=== PATIENT | female | born 1980 | race Caucasian/White ===

== ENCOUNTER 2018-08-28 16:07 | Inpatient (IN) | payer OTHER ==
[~2018-08-28] VITALS: Ht 175.3 cm; Wt 71.2 kg
[2018-08-30] MEDS ORDERED: ORTHO-CYCLEN 21 EACH PO (08:54)
[2018-08-30] MEDS ORDERED: PROFERRIN-FORT1 EACH PO (08:55)
== END 2018-08-30 15:47 | disposition home or self-care, planned readmission (81) | DRG 760 ==
LOC: ER 16:07 → OB/GYN 19:00
PROC: 30233N1 Transfusion of Nonautologous Red Blood Cells into Peripheral Vein, Percutaneous Approach (ICD-10-PCS; principal; 2018-08-28)
PROC: BU4CZZZ Ultrasonography of Uterus and Ovaries (ICD-10-PCS; 2018-08-29)
DX: N92.0 Excessive and frequent menstruation with regular cycle (principal); D62 Acute posthemorrhagic anemia; K92.2 Gastrointestinal hemorrhage, unspecified; N83.292 Other ovarian cyst, left side; N83.291 Other ovarian cyst, right side

== ENCOUNTER 2022-03-08 14:05 | Outpatient (CLI) | payer OTHER ==
[~2022-03-08 14:05] MED LIST: ORTHO-CYCLEN 21 EACH PO; PROFERRIN-FORT1 EACH PO
== END 2022-03-08 14:28 | disposition home or self-care (01) ==
LOC: LAB 14:05
PROVIDERS: ATTEND Internal Medicine Hematology & Oncology
DX: D50.8 Other iron deficiency anemias (principal); R79.9 Abnormal finding of blood chemistry, unspecified; I10 Essential (primary) hypertension; R74.02 Elevation of levels of lactic acid dehydrogenase [LDH]; K76.89 Other specified diseases of liver; D51.0 Vitamin B12 deficiency anemia due to intrinsic factor deficiency; E06.3 Autoimmune thyroiditis; D68.8 Other specified coagulation defects; C56.9 Malignant neoplasm of unspecified ovary; R97.8 Other abnormal tumor markers; R97.1 Elevated cancer antigen 125 [CA 125]; Z80.3 Family history of malignant neoplasm of breast; D72.818 Other decreased white blood cell count; D51.3 Other dietary vitamin B12 deficiency anemia; D51.1 Vitamin B12 deficiency anemia due to selective vitamin B12 malabsorption with proteinuria; D69.1 Qualitative platelet defects

== ENCOUNTER → 2022-12-20 09:30 | Outpatient (CLI) | payer OTHER | END | disposition home or self-care (01) | LOC: LAB 09:30 | PROVIDERS: ATTEND Internal Medicine Hematology & Oncology | DX: D72.818 Other decreased white blood cell count (principal); D51.3 Other dietary vitamin B12 deficiency anemia; I10 Essential (primary) hypertension ==

== ENCOUNTER → 2022-12-20 | Outpatient (CLI) | payer OTHER | END | disposition home or self-care (01) | LOC: SONOGRAMA 10:02 | PROVIDERS: ATTEND Internal Medicine Hematology & Oncology | DX: D72.818 Other decreased white blood cell count (principal); D51.3 Other dietary vitamin B12 deficiency anemia; I10 Essential (primary) hypertension; Z80.3 Family history of malignant neoplasm of breast; Z87.42 Personal history of other diseases of the female genital tract ==

== ENCOUNTER → 2023-06-22 11:02 | Outpatient (CLI) | payer OTHER | END | disposition home or self-care (01) | LOC: LAB 11:02 | PROVIDERS: ATTEND Internal Medicine Hematology & Oncology | DX: D50.8 Other iron deficiency anemias (principal); R79.9 Abnormal finding of blood chemistry, unspecified; I10 Essential (primary) hypertension; R74.02 Elevation of levels of lactic acid dehydrogenase [LDH]; K76.89 Other specified diseases of liver; E55.9 Vitamin D deficiency, unspecified; C56.9 Malignant neoplasm of unspecified ovary; R97.8 Other abnormal tumor markers; R97.1 Elevated cancer antigen 125 [CA 125]; R97.0 Elevated carcinoembryonic antigen [CEA]; Z80.3 Family history of malignant neoplasm of breast; D72.818 Other decreased white blood cell count; D51.3 Other dietary vitamin B12 deficiency anemia ==

== ENCOUNTER 2023-08-28 12:04 | Outpatient (CLI) | payer OTHER ==
[2023-08-28 13:53] LABS: PH,URINE 5.5 (5.0-8.0); URINE APPEARANCE Clear; URINE BILIRRUBIN Negative (NEGATIVE); URINE BLOOD Negative; URINE COLOR Yellow; URINE GLUCOSE Negative (NEGATIVE); URINE LEUKOCYTE Negative; URINE NITRATE Negative; URINE PROTEIN Trace (NEGATIVE); URINE UROBILINOGEN 0.2 E.U./dl
[2023-08-28 13:57] LABS: URINE BACTERIA 279.6 uL (0.0-1933); URINE EPITHELIAL CELLS 12.5 uL (0.0-38.8); URINE RBC 4.5 uL (0.0-20.8); URINE WBC 12.2 uL (0.0-23.2)
[2023-08-28 13:57] LABS: HEMATOCRIT 35.4 % (36.0-45.00); MEAN CELL VOLUME 88.3 fL (80.00-100.00); MEAN CORPUSCULAR HEMOGLOBIN 29.9 pg (27.00-32.0); MEAN CORPUSCULAR HGB CONC 33.8 g/dl (32.0-36.0); PLATELET COUNT 189 K/uL (150-450); RED BLOOD COUNT 4.01 M/uL (4.00-6.00); RED CELL DISTRIBUTION WIDTH 14.2 % (11.5-14.5)
[2023-08-28 14:53] LABS: ALBUMIN 3.9 gm/dL (3.4-5.0); BILIRUBIN TOTAL 0.41 mg/dL (0.3-1.2); CALCIUM 9.1 mg/dL (8.5-10.1); CHOL HDL RATIO 3.2 (0-5.0); CREATININE SERUM 0.89 mg/dL (0.55-1.02); GFR 70.25; GLOBULINA 5.2 G/DL (2.4-3.5); POTASSIUM 3.58 mEq/L (3.5-5.1); T4 FREE 0.89 NG/ML (0.76-1.46); TOTAL PROTEIN 9.1 gm/dL (6.4-8.2); TSH 3.21 uIU/mL (0.358-3.74)
== END 2023-08-28 12:13 | disposition home or self-care (01) ==
LOC: LAB 12:04
PROVIDERS: ATTEND Internal Medicine Hematology & Oncology
DX: M32.9 Systemic lupus erythematosus, unspecified (principal); M06.9 Rheumatoid arthritis, unspecified; K74.3 Primary biliary cirrhosis; M34.81 Systemic sclerosis with lung involvement; M33.20 Polymyositis, organ involvement unspecified; Z80.3 Family history of malignant neoplasm of breast; D72.818 Other decreased white blood cell count; D51.3 Other dietary vitamin B12 deficiency anemia; R76.0 Raised antibody titer; M15.0 Primary generalized (osteo)arthritis; I10 Essential (primary) hypertension; M35.89 Other specified systemic involvement of connective tissue; D64.9 Anemia, unspecified; E78.9 Disorder of lipoprotein metabolism, unspecified; E03.9 Hypothyroidism, unspecified; R73.01 Impaired fasting glucose

== ENCOUNTER 2023-12-07 09:19 | Outpatient (CLI) | payer OTHER ==
[2023-12-07 10:24] LABS: HEMOGLOBIN 11.2 g/dL (12.0-15.00); MEAN CORPUSCULAR HEMOGLOBIN 29.3 pg (27.00-32.0); PLATELET COUNT 164 K/uL (150-450); RED BLOOD COUNT 3.82 M/uL (4.00-6.00); RED CELL DISTRIBUTION WIDTH 14.3 % (11.5-14.5)
[2023-12-07 10:59] LABS: ALBUMIN 3.6 gm/dL (3.4-5.0); BILIRUBIN TOTAL 0.32 mg/dL (0.3-1.2); CALCIUM 9.2 mg/dL (8.5-10.1); CREATININE SERUM 0.97 mg/dL (0.55-1.02); GFR 63.29; GLOBULINA 4.7 G/DL (2.4-3.5); POTASSIUM 3.81 mEq/L (3.5-5.1); TOTAL PROTEIN 8.3 gm/dL (6.4-8.2)
[2023-12-07 12:59] LABS: MANUAL PLATELET COUNT 234
[2023-12-07 13:01] LABS: PLATELET ESTIMATE NORMAL (NORMAL)
== END 2023-12-07 09:20 | disposition home or self-care (01) ==
LOC: LAB 09:19
PROVIDERS: ATTEND Internal Medicine Hematology & Oncology
DX: D50.8 Other iron deficiency anemias (principal); R79.9 Abnormal finding of blood chemistry, unspecified; I10 Essential (primary) hypertension; R74.02 Elevation of levels of lactic acid dehydrogenase [LDH]; K76.89 Other specified diseases of liver; C56.9 Malignant neoplasm of unspecified ovary; R97.8 Other abnormal tumor markers; R97.1 Elevated cancer antigen 125 [CA 125]; Z80.3 Family history of malignant neoplasm of breast; D72.818 Other decreased white blood cell count; D51.3 Other dietary vitamin B12 deficiency anemia; R76.0 Raised antibody titer; M15.0 Primary generalized (osteo)arthritis

== ENCOUNTER 2023-12-20 07:20 | Outpatient (CLI) | payer OTHER | END 2023-12-20 07:21 | disposition home or self-care (01) | LOC: NUCLEAR 07:20 | PROVIDERS: ATTEND Internal Medicine Hematology & Oncology | DX: M15.0 Primary generalized (osteo)arthritis (principal); D72.818 Other decreased white blood cell count; D51.3 Other dietary vitamin B12 deficiency anemia; R76.0 Raised antibody titer; I10 Essential (primary) hypertension | CPT/HCPCS: 78315; A9503 ==

== ENCOUNTER → 2024-08-15 10:08 | Outpatient (CLI) | payer OTHER ==
[2024-08-15 11:17] LABS: HEMATOCRIT 30.2 % (36.0-45.00); MEAN CELL VOLUME 75.7 fL (80.00-100.00); MEAN CORPUSCULAR HGB CONC 30.9 g/dl (32.0-36.0); PLATELET COUNT 194 K/uL (150-450); RED BLOOD COUNT 3.98 M/uL (4.00-6.00); RED CELL DISTRIBUTION WIDTH 17.8 % (11.5-14.5)
[2024-08-15 11:43] LABS: HEMOGLOBIN 9.3 g/dL (12.0-15.00); MEAN CORPUSCULAR HEMOGLOBIN 23.3 pg (27.00-32.0)
[2024-08-15 12:25] LABS: % SATURACION 4.7 % (15-50); ALBUMIN 3.8 gm/dL (3.4-5.0); BILIRUBIN TOTAL 0.25 mg/dL (0.3-1.2); CREATININE SERUM 0.81 mg/dL (0.55-1.02); GFR 77.92; TOTAL PROTEIN 8.8 gm/dL (6.4-8.2)
[2024-08-15 12:26] LABS: FERRITIN 5.7 NG/ML (8-252)
[2024-08-15 13:18] LABS: FOLIC ACID 16.94 ng/ml (4.78-20); VITAMIN D3 25 HYDROXY 34.01 ng/ml (30-120)
[2024-08-15 13:43] LABS: PLATELET ESTIMATE NORMAL (NORMAL)
== END | disposition home or self-care (01) ==
LOC: LAB 10:08
PROVIDERS: ATTEND Internal Medicine Hematology & Oncology
DX: Z80.3 Family history of malignant neoplasm of breast (principal); D72.818 Other decreased white blood cell count; D51.3 Other dietary vitamin B12 deficiency anemia; R76.0 Raised antibody titer; M15.0 Primary generalized (osteo)arthritis; I10 Essential (primary) hypertension; M06.9 Rheumatoid arthritis, unspecified; M35.00 Sjogren syndrome, unspecified; M05.29 Rheumatoid vasculitis with rheumatoid arthritis of multiple sites; D64.89 Other specified anemias; N39.0 Urinary tract infection, site not specified; M35.81 Multisystem inflammatory syndrome; B17.9 Acute viral hepatitis, unspecified; Z11.4 Encounter for screening for human immunodeficiency virus [HIV]

== ENCOUNTER 2024-10-13 09:50 | Outpatient (CLI) | payer OTHER ==
[2024-10-13 10:22] LABS: HEMATOCRIT 31.7 % (36.0-45.00); HEMOGLOBIN 10.4 g/dL (12.0-15.00); MEAN CELL VOLUME 80.1 fL (80.00-100.00); MEAN CORPUSCULAR HEMOGLOBIN 26.3 pg (27.00-32.0); MEAN CORPUSCULAR HGB CONC 32.8 g/dl (32.0-36.0); PLATELET COUNT 167 K/uL (150-450); RED BLOOD COUNT 3.96 M/uL (4.00-6.00)
[2024-10-13 10:23] LABS: RED CELL DISTRIBUTION WIDTH 22.6 % (11.5-14.5)
[2024-10-13 10:30] LABS: PH,URINE 5.5 (5.0-8.0); URINE APPEARANCE Clear; URINE BILIRRUBIN Negative (NEGATIVE); URINE BLOOD Negative; URINE COLOR Yellow; URINE GLUCOSE Negative (NEGATIVE); URINE KETONE Negative (NEGATIVE); URINE LEUKOCYTE Negative; URINE NITRATE Negative; URINE PROTEIN Negative (NEGATIVE); URINE UROBILINOGEN 0.2 E.U./dl
[2024-10-13 10:35] LABS: URINE BACTERIA 30.5 uL (0.0-1933); URINE EPITHELIAL CELLS 5.9 uL (0.0-38.8); URINE RBC 2.7 uL (0.0-20.8); URINE WBC 5.6 uL (0.0-23.2)
[2024-10-13 10:39] LABS: URINE CAST 0.14 uL (0.0-1.40)
[2024-10-13 11:18] LABS: ALBUMIN 3.6 gm/dL (3.4-5.0); BILIRUBIN TOTAL 0.31 mg/dL (0.3-1.2); CALCIUM 8.6 mg/dL (8.5-10.1); CHOL HDL RATIO 2.9 (0-5.0); CREATININE SERUM 0.9 mg/dL (0.55-1.02); GFR 68.66; GLOBULINA 4.7 G/DL (2.4-3.5); POTASSIUM 3.64 mEq/L (3.5-5.1); TOTAL PROTEIN 8.3 gm/dL (6.4-8.2); TSH 2.87 uIU/mL (0.358-3.74)
== END 2024-10-13 09:57 | disposition home or self-care (01) ==
LOC: LAB 09:50
PROVIDERS: ATTEND Internal Medicine Cardiovascular Disease
DX: I10 Essential (primary) hypertension (principal); E78.5 Hyperlipidemia, unspecified; E03.9 Hypothyroidism, unspecified; R73.9 Hyperglycemia, unspecified; D64.9 Anemia, unspecified; N18.9 Chronic kidney disease, unspecified

== ENCOUNTER 2024-12-25 10:20 | Outpatient (CLI) | payer OTHER ==
[2024-12-25 11:41] LABS: URINE APPEARANCE Clear; URINE BILIRRUBIN Negative (NEGATIVE); URINE BLOOD Negative; URINE COLOR Yellow; URINE GLUCOSE Negative (NEGATIVE); URINE KETONE Negative (NEGATIVE); URINE LEUKOCYTE Negative; URINE NITRATE Negative; URINE PROTEIN Negative (NEGATIVE); URINE UROBILINOGEN 0.2 E.U./dl
[2024-12-25 11:45] LABS: URINE BACTERIA 292.5 uL (0.0-1933); URINE EPITHELIAL CELLS 7.5 uL (0.0-38.8); URINE RBC 3.6 uL (0.0-20.8); URINE WBC 6.1 uL (0.0-23.2)
[2024-12-25 11:46] LABS: URINE CAST 0.14 uL (0.0-1.40)
[2024-12-25 11:47] LABS: HEMATOCRIT 35.7 % (36.0-45.00); HEMOGLOBIN 11.8 g/dL (12.0-15.00); MEAN CELL VOLUME 87.2 fL (80.00-100.00); MEAN CORPUSCULAR HEMOGLOBIN 28.8 pg (27.00-32.0); PLATELET COUNT 185 K/uL (150-450); RED CELL DISTRIBUTION WIDTH 18.2 % (11.5-14.5)
[2024-12-25 11:52] LABS: ERYTHROCYTE SEDIMENTATION RATE 111 mm/hr
[2024-12-25 12:05] LABS: INR 1.02; PARTIAL THROMBOPLASTIN TIME 27.1 SECONDS (22.0-34.0); PROTHROMBIN TIME 11.1 SECONDS (9.0-11.5)
[2024-12-25 12:07] LABS: COL EPI 139 SECONDS (82-175)
[2024-12-25 12:27] LABS: ALBUMIN 3.8 gm/dL (3.4-5.0); ALKALINE PHOSPHATASE 47 U/L (50-136); ALT/SGPT 26 U/L (12-78); ANION GAP 5 (10.0-20.0); AST/SGOT 17 U/L (15-37); BILIRUBIN TOTAL 0.47 mg/dL (0.3-1.2); BLOOD UREA NITROGEN 18 mg/dL (7-18); BUN CREA RATIO 21 (7.0-25.0); CALCIUM 9.1 mg/dL (8.5-10.1); CARBON DIOXIDE 31 mEq/L (21-32); CHLORIDE 109 mmol/L (98-107); CREATININE SERUM 0.86 mg/dL (0.55-1.02); FERRITIN 36.5 NG/ML (8-252); GFR 72.36; GLOBULINA 4.7 G/DL (2.4-3.5); GLUCOSE FASTING 85 mg/dL (65-100); LDH 198 U/L (84-246); OSMOLALITY SERUM 282 MOSM/KG (275-295); POTASSIUM 3.85 mEq/L (3.5-5.1); SODIUM 141 mmol/L (136-145); TOTAL IRON BINDING CAPACITY 342 ug/dl (250-450); TOTAL PROTEIN 8.5 gm/dL (6.4-8.2)
[2024-12-25 12:31] LABS: C-REACTIVE PROTEIN < 0.29 MG/DL (0.00-0.29)
[2024-12-25 13:17] LABS: FOLIC ACID > 20.00 ng/ml (4.78-20)
[2024-12-25 14:04] LABS: MANUAL PLATELET COUNT 260
[2024-12-25 14:06] LABS: PLATELET ESTIMATE NORMAL (NORMAL)
== END 2024-12-25 10:21 | disposition home or self-care (01) ==
LOC: LAB 10:20
PROVIDERS: ATTEND Internal Medicine Hematology & Oncology
DX: D50.8 Other iron deficiency anemias (principal); R79.9 Abnormal finding of blood chemistry, unspecified; I10 Essential (primary) hypertension; R74.02 Elevation of levels of lactic acid dehydrogenase [LDH]; K76.89 Other specified diseases of liver; D68.8 Other specified coagulation defects; D69.1 Qualitative platelet defects; D64.89 Other specified anemias; M35.81 Multisystem inflammatory syndrome; I72.2 Aneurysm of renal artery

== ENCOUNTER 2024-12-25 12:01 | Outpatient (CLI) | payer OTHER | END 2024-12-25 12:02 | disposition home or self-care (01) | LOC: SONOGRAMA 12:01 | PROVIDERS: ATTEND Internal Medicine Hematology & Oncology | DX: D72.818 Other decreased white blood cell count (principal); Z80.3 Family history of malignant neoplasm of breast; D51.3 Other dietary vitamin B12 deficiency anemia; R76.0 Raised antibody titer; M15.0 Primary generalized (osteo)arthritis; I10 Essential (primary) hypertension; M06.9 Rheumatoid arthritis, unspecified; M35.00 Sjogren syndrome, unspecified; M05.29 Rheumatoid vasculitis with rheumatoid arthritis of multiple sites ==